=== PATIENT | male | born 1990 | race Caucasian/White ===

== ENCOUNTER 2018-03-27 11:59 | Emergency (ER) | payer MEDICAID ==
[2018-03-27] MEDS ORDERED: Ketorolac 60 MG/2 ML SDV IM ONE (12:27)
[2018-03-27] MEDS ORDERED: Morphine 10 MG/ML Syringe IM ONE (13:26)
--- NOTE | 2018-03-27 13:33 | EDM.PDOC ---
ED HPI GENERAL MEDICAL PROBLEM - General Chief Complaint: Back Pain or Injury Stated Complaint: COUGH,FEVER,BODY ACHES Time Seen by Provider: 03/27/18 12:00 Source of Information: Reports: Patient History Limitations: Reports: No Limitations - History of Present Illness INITIAL COMMENTS - FREE TEXT/NARRATIVE: Presents reporting 2 problems. First he reports a three-day history of cough, sweaty, feverish, body aches and scratchy throat. No breathing problems or chest pain he did have a flu shot he does not smoke. Then a two days ago he was lifting a 50 pound bag of cement from the ground when he felt a pop in his low back. He immediately had some numb-like pain down into his right upper buttock and in to his thigh. He did continue to work that day but the pain only worsened and now it has worsened to where he cannot stay in one position for very long and has to struggle a position of comfort. He denies any tingling or numbness in his private areas or bowel or bladder dysfunction. He has had low back pain before with imaging but has chosen to deal with it conservatively. He does have an appointment with his primary provider from [place] home [place] on April 06. Lower Back Pain Score (Numeric/FACES): 8 - Related Data Allergies Allergy/AdvReac Type Severity Reaction Status Date / Time Sulfa (Sulfonamide Allergy Rash Verified 03/27/18 12:13 Antibiotics) Home Meds: Home Meds Diclofenac Sodium [Voltaren] 75 mg PO BIDMEALS #20 tab.ec 03/27/18 [Rx] Lisinopril 20 mg PO DAILY 03/27/18 [History] guaiFENesin/Codeine Phosphate [Cheratussin AC Syrup] 10 ml PO Q4HR PRN #236 liquid 03/27/18 [Rx] Past Medical History Cardiovascular History: Reports: Hypertension Social & Family History - Family History Family Medical History: Noncontributory - Tobacco Use Smoking Status *Q: Light Tobacco Smoker Years of Tobacco use: 3 Packs/Tins Daily: 0.1 - Recreational Drug Use Recreational Drug Use: No ED ROS GENERAL - Review of Systems Review Of Systems: ROS reveals no pertinent complaints other than HPI. ED EXAM,LOWER BACK PAIN/INJURY - Physical Exam Exam: See Below Exam Limited By: No Limitations General Appearance: Alert, Moderate Distress (Due to inability to find a position of comfort) Ears: Normal External Exam, Normal TMs Nose: Normal Inspection. No: Nasal Drainage Throat/Mouth: Other (Posterior pharyngeal erythema no swelling or exudates) Head: Atraumatic, Normocephalic Neck: Supple. No: Lymphadenopathy (L), Lymphadenopathy (R) Respiratory/Chest: No Respiratory Distress, Lungs Clear, Normal Breath Sounds Cardiovascular: Normal Peripheral Pulses, Regular Rate, Rhythm, No Murmur GI/Abdominal: Soft Extremities: Normal Inspection Neurological: Alert, No Motor/Sensory Deficits, Oriented x 3, Straight Leg Raise (R). No: Straight Leg Raise (L), Saddle Anesthesia, Difficulty Walking DTR - Lower Extremities: 0: Knee (R), 1+: Knee (L) Psychiatric: Normal Affect, Normal Mood Skin Exam: Warm, Intact, Normal Color, No Rash, Diaphoretic Lymphatic: No Adenopathy Course - Vital Signs Last Recorded V/S: Last Vital Signs Temp 36.8 C 03/27/18 12:08 Pulse 99 03/27/18 12:08 Resp 18 03/27/18 12:08 BP 152/84 H 03/27/18 12:08 Pulse Ox 99 03/27/18 12:08 - Orders/Labs/Meds Orders: Active Orders 24 hr Category Date Time Status CULTURE STREP A CONFIRMATION [] Stat Lab 03/27/18 12:47 Results STREP SCRN A RAPID W CULT CONF [] Stat Lab 03/27/18 12:26 Ordered Meds: Medications Discontinued Medications Generic Name Dose Route Start Last Admin Trade Name Raymond PRN Reason Stop Dose Admin Ketorolac Tromethamine 60 mg 03/27/18 12:27 03/27/18 12:48 Toradol IM 03/27/18 12:28 60 mg ONETIME ONE Administration Morphine Sulfate 8 mg 03/27/18 13:26 Morphine IM 03/27/18 13:27 ONETIME ONE - Re-Assessments/Exams Free Text/Narrative Re-Assessment/Exam: 03/27/18 13:43 The patient was offered a CT scan with the caveat that it likely would not show everything that was needed. He elected to wait until he sees his primary provider and get an MRI at that time Departure - Departure Time of Disposition: 13:40 Disposition: Home, Self-Care 01 Condition: Good Clinical Impression: Bronchitis, Radicular low back pain Upper respiratory infection Qualifiers: URI type: unspecified viral URI Qualified Code(s): J06.9 - Acute upper respiratory infection, unspecified - Discharge Information Referrals: PCP,None [Primary Care Provider] - Additional Instructions: 1. Cough medication 10 mL every 4 hours as needed with driving precautions. 2. Diclofenac twice daily for back pain and body aches 3. Follow-up with primary provider as previously scheduled on April 06 4. If it anytime you develop problems with bowel or bladder function, trouble walking, or tingling or numbness in your private parts, report to the nearest emergency room. 5. Drink plenty of fluids and rest. 6. You have been given an opioid pain reliever today in the emergency room. You may not drive or operate machinery depressive today - My Orders Last 24 Hours: My Active Orders 03/27/18 12:26 STREP SCRN A RAPID W CULT CONF [RM] Stat 03/27/18 12:47 CULTURE STREP A CONFIRMATION [] Stat - Assessment/Plan Last 24 Hours: My Active Orders 03/27/18 12:26 STREP SCRN A RAPID W CULT CONF [RM] Stat 03/27/18 12:47 CULTURE STREP A CONFIRMATION [] Stat
== END 2018-03-27 13:56 | disposition home or self-care (01) ==
LOC: MW.ED 11:59
DX: J40 Bronchitis, not specified as acute or chronic (principal); J06.9 Acute upper respiratory infection, unspecified; M54.16 Radiculopathy, lumbar region; I10 Essential (primary) hypertension; F17.210 Nicotine dependence, cigarettes, uncomplicated; Z88.2 Allergy status to sulfonamides
CPT/HCPCS: 87081; 87804; 87880; 96372; 99283; J1885; J2270